=== PATIENT | male | born 1990 | race Caucasian/White ===

== ENCOUNTER 2018-04-12 10:07 | Emergency (ER) | payer SELFPAY ==
[2018-04-12 10:08] VITALS: BP 146/62; PULSE 106; RESP 15; TEMP 37.7; O2SAT 98; BMI 23.6
--- NOTE | 2018-04-12 10:15 | RAD_ITS ---
STUDY: X-RAY CHEST REASON FOR EXAM: Male, 28 years old. LEFT SIDE CHEST PAIN APPROX 4 DAYS; PRODUCTIVE COUGH; SOB; FEVER GENERAL ILLNESS. TECHNIQUE: Frontal and lateral views of the chest. COMPARISON: None. FINDINGS: The lungs are clear and expanded. There is no demonstrated pleural abnormality. Normal size heart. Normal mediastinum and tabitha. Normal visualized pulmonary arteries. Normal visualized aortic arch and descending thoracic aorta. Normal visualized thoracic spine. Normal visualized ribs, clavicles, and shoulders. There is no demonstrated abnormality of the visualized soft tissue structures of the upper abdomen. RAD/Chest PA and Lateral IMPRESSION: Normal x-ray examination of the chest. Electronically Signed: Arnoldo Still MD at 11:05 EDT Tel , Service support ,
--- NOTE | 2018-04-12 10:18 | ED.DCSUM_ITS ---
- ER Visit Summary Date of Service: 04/12/18 Chief Complaint: Cough, fever History of Present Illness: The patient is a 28 M who is otherwise healthy presents to the emergency department with cough and fever. Patient symptoms began about 3 days ago. He states he had fevers, chills, facial fullness, productive cough. He states his fever finally broke, but he is continued to cough. He denies feeling short of breath. He does admit to myalgias and arthralgias. He has no history of immunosuppression. He denies any history of pneumonia. He is not been on recent antibiotics. He has no underlying history of lung disease. He states that he went to work, and they told him you need to go get checked out. Physical Examination: Vital signs reviewed General: Well-nourished, well-developed Head: Normocephalic, atraumatic Eyes: Pupils equal and reactive, extraocular muscles intact Neck, supple, no lymphadenopathy Heart: Regular rate and rhythm Respiratory: No distress, clear bilaterally Abdomen: Soft, nontender, nondistended, no peritoneal signs Back: Nontender Extremities: Nontender, no edema, no cords Skin: Normal color no rash Neuro: Alert and oriented, no focal or lateralizing deficits Test Results: [] Emergency Department Course and Treatment: The patient presents with cough and fever. He has no focal change in lung sounds. Given his symptoms, I did obtain a chest x-ray. There is no focal infiltrate or pneumonia. The patient is resting comfortably. He has no hypoxia. He has no tachypnea. I do feel that the symptoms are likely viral given his cough and fever do not see a clear indication for antibiotics at this time. He has no tachypnea. He has no hypoxia. I do feel that he is safe for outpatient therapy. The patient was counseled on concerning symptoms and reasons to return. He will be discharged home. Treatment Plan: [] Disposition: Discharge Impression: 1. Viral URI This note was generated with [employer] dictation software. It may contain incorrect words, spelling, and punctuation that were not noted in review of the chart prior to signing ED Disposition - Plan for ED Patient: Chief Complaint: Cough Instructions: ED Upper Resp Infec No Abx Tx Referrals: Ruth Fam NP-C [NON-STAFF] -
[2018-04-12 10:22] VITALS: O2SAT 99
[2018-04-12] MEDS: Ipratropium/Albuterol Sulfate 3 ML AMPUL.NEB INHALATION (10:30)
[2018-04-12 10:32] VITALS: PULSE 110; RESP 18; O2SAT 97
[2018-04-12 11:07] VITALS: PULSE 96; RESP 15; O2SAT 99
== END 2018-04-12 11:34 | disposition home or self-care (01) ==
PROVIDERS: Emergency Provider Emergency Medicine
DX: J06.9 Acute upper respiratory infection, unspecified (principal)
CPT/HCPCS: 71046; 94640; 99282

== ENCOUNTER 2018-05-27 16:44 | Emergency (ER) | payer SELFPAY ==
[2018-05-27 16:46] VITALS: BP 107/61; PULSE 110; RESP 18; TEMP 36.7; O2SAT 98; BMI 21.4
--- NOTE | 2018-05-27 17:08 | ED.VISSUMM ---
- ER Visit Summary Date of Service: 05/27/18 Chief Complaint: Right inguinal pain History of Present Illness: The patient is a 28 M states that about 5 years ago he had a right inguinal hernia repair by Dr. Jorge diop. He is not sure of exactly how it was repaired. He states that about 1 week ago he was lifting a lot of boxes when he felt pain in the right lower quadrant inguinal region. He notes pain since. He denies any bulging into his scrotum or along the inguinal ligament/ring. Normal bowel movements. Physical Examination: Afebrile vital signs are stable Gen: Well-nourished well-developed Head: Normocephalic atraumatic Eyes: Perrl EOMI ENT: TMs clear no rhinorrhea moist mucous membranes Neck: Supple no lymphadenopathy no JVD nontender CVS: Regular rate rhythm no murmurs normal S1-S2 Respiratory: No distress clear to auscultation bilaterally chest nontender Abdomen: Soft nontender nondistended normal bowel sounds no masses : I do not palpate an obvious hernia. He has tenderness at the inguinal ring. Back: Nontender Extremity: Nontender no edema Skin: Normal color no rash Neuro: alert orientated ?3 CN II-XII intact normal strength sensation reflexes gait cerebellar Psych: Normal affect normal mood Emergency Department Course and Treatment: Patient will referred to general surgery. He is to rest avoid heavy lifting. I will write for anti-inflammatories and a few [place]. Impression: 1. Right inguinal strain This note was generated with [employer] dictation software. It may contain incorrect words, spelling, and punctuation that were not noted in review of the chart prior to signing ED Disposition - Plan for ED Patient: Disposition: Home or Assisted Living Chief Complaint: Abd Pain Instructions: ED Hernia Inguinal Prescriptions: Hydrocodone Bitart/Apap 5-325 [[place] 5MG-325MG] 1 tab PO Q6H PRN PRN 3 Days #10 tab PRN Reason: Pain Ibuprofen [Motrin] 800 mg PO TID PRN PRN #20 tab PRN Reason: Pain Referrals: Juni Neal MD [STAFF PHYSICIAN] - (call to arrange follow up)
--- NOTE | 2018-05-27 17:11 | ED.DCSUM_ITS ---
- ER Visit Summary Date of Service: 05/27/18 Chief Complaint: Right inguinal pain History of Present Illness: The patient is a 28 M states that about 5 years ago he had a right inguinal hernia repair by Dr. Jorge diop. He is not sure of exactly how it was repaired. He states that about 1 week ago he was lifting a lot of boxes when he felt pain in the right lower quadrant inguinal region. He notes pain since. He denies any bulging into his scrotum or along the inguinal ligament/ring. Normal bowel movements. Physical Examination: Afebrile vital signs are stable Gen: Well-nourished well-developed Head: Normocephalic atraumatic Eyes: Perrl EOMI ENT: TMs clear no rhinorrhea moist mucous membranes Neck: Supple no lymphadenopathy no JVD nontender CVS: Regular rate rhythm no murmurs normal S1-S2 Respiratory: No distress clear to auscultation bilaterally chest nontender Abdomen: Soft nontender nondistended normal bowel sounds no masses : I do not palpate an obvious hernia. He has tenderness at the inguinal ring. Back: Nontender Extremity: Nontender no edema Skin: Normal color no rash Neuro: alert orientated ?3 CN II-XII intact normal strength sensation reflexes gait cerebellar Psych: Normal affect normal mood Emergency Department Course and Treatment: Patient will referred to general surgery. He is to rest avoid heavy lifting. I will write for anti- inflammatories and a few [place]. Impression: 1. Right inguinal strain This note was generated with [employer] dictation software. It may contain incorrect words, spelling, and punctuation that were not noted in review of the chart prior to signing ED Disposition - Plan for ED Patient: Disposition: Home or Assisted Living Chief Complaint: Abd Pain Instructions: ED Hernia Inguinal Prescriptions: Hydrocodone Bitart/Apap 5-325 [[place] 5MG-325MG] 1 tab PO Q6H PRN PRN 3 Days #10 tab PRN Reason: Pain Ibuprofen [Motrin] 800 mg PO TID PRN PRN #20 tab PRN Reason: Pain Referrals: Juni Neal MD [STAFF PHYSICIAN] - (call to arrange follow up)
== END 2018-05-27 17:17 | disposition home or self-care (01) ==
PROVIDERS: Emergency Provider Emergency Medicine
DX: S39.011A Strain of muscle, fascia and tendon of abdomen, initial encounter (principal); X50.9XXA Other and unspecified overexertion or strenuous movements or postures, initial encounter; Y93.9 Activity, unspecified; Y92.9 Unspecified place or not applicable; Y99.9 Unspecified external cause status
CPT/HCPCS: 99282

== ENCOUNTER → 2018-09-12 12:30 | Outpatient (CLI) | payer MEDICAID, SELFPAY ==
[2018-06-04 10:01] VITALS: BMI 21.4
--- NOTE | 2018-09-12 10:10 | LES_PTH ---
PATIENT: MARILIN HENDRIX LOC: [facility] U#:[id number] AGE/SX: 35/M ROOM: RE09/12/[address]: Dr. Kike Hou, : 1990 BED: DIS: SPEC #: [id number] RECD: 09/12/18 15:24 STATUS: DENIS LUZ #: [id number] RADHA: 09/12/18 10:[address]: Kike Hou DEPT: SURGICAL PATHOLOGY RECD BY: Kleber Moreno Tissues: Skin of arm Procedures: Surgery Specimen Level IV HEADER OPERATION: Punch biopsy PRE-OP DIAGNOSIS: Changing nevus right elbow, rule out melanoma TISSUE SUBMITTED: Right elbow 4 mm punch biopsy MICROSCOPIC DIAGNOSIS Lesion of right elbow, punch biopsy: Intradermal nevus. AM:michelle 09/16/18 MICROSCOPIC DESCRIPTION Slides are reviewed. GROSS DESCRIPTION Received is one container labeled with the patient's name and not further designated. The specimen consists of a single irregular fragment of segundo tissue measuring 0.3 x 0.3 x 0.1 cm. The specimen is totally submitted in one cassette. / AM:michelle 09/13/18 TC:5 [facility]: [id number]
== END ==
PROVIDERS: Family Provider Family Medicine; PCP Family Medicine; Visit Provider Family Medicine
DX: D22.61 Melanocytic nevi of right upper limb, including shoulder (principal)
CPT/HCPCS: 88305

== ENCOUNTER → 2018-10-23 07:53 | Outpatient (CLI) | payer MEDICAID, SELFPAY ==
[2018-06-04 10:01] VITALS: BMI 21.4
--- NOTE | 2018-10-23 08:06 | CT_ITS ---
STUDY: CT MAXILLOFACIAL SINUSES REASON FOR EXAM: Male, 28 years old. Sinusitis RADIATION DOSAGE (If Supplied By Facility): CTDIvol = ( 33.06 ) mGy, DLP = ( 796.66 ) mGycm TECHNIQUE: The patient was scanned in a multi detector CT scanner. High resolution axial imaging was performed without the administration of intravenous contrast material. Sagittal and coronal images were reconstructed. Individualized dose optimization techniques were used for this CT. COMPARISON: None. FINDINGS: FRONTAL SINUSES: Normal aeration, without mucosal inflammatory disease. ETHMOIDAL SINUSES: Minor mucosal thickening of the anterior ethmoid air cells. MAXILLARY SINUSES: There is very minor mucosal thickening of the roof of the maxillary sinuses bilaterally SPHENOIDAL SINUSES: Polypoid mucosal thickening left sphenoid sinus. There is patency of the bilateral maxillary infundibuli with normal uncinate processes, ethmoid bullae, and hiatus semilunaris. Normal bilateral middle turbinates. Normal bilateral inferior turbinates. Mild deviation of nasal septum to the left. There is patency of the bilateral nasal airways. The visualized osseous structures are normal. The visualized bilateral orbital contents are normal. CT/Sinus/Facial Bone IMPRESSION: Minor bilateral maxillary ethmoid and left sphenoid sinusitis Electronically Signed: Adrian Jacobo MD at 21:19 EDT , Service support ,
== END ==
PROVIDERS: Family Provider Family Medicine; PCP Family Medicine; Referring Provider Otolaryngology; Visit Provider Otolaryngology
DX: J32.9 Chronic sinusitis, unspecified (principal)
CPT/HCPCS: 70486

== ENCOUNTER 2019-01-22 23:55 | Emergency (ER) | payer MEDICAID, SELFPAY ==
[2018-06-04 10:01] VITALS: BMI 21.4
[2019-01-22 23:56] VITALS: BP 113/63; PULSE 99; RESP 16; TEMP 36.7; O2SAT 99; BMI 19.8
--- NOTE | 2019-01-23 00:03 | ED.RN ---
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 PT STATES THAT HE WAS HAVING THOUGHTS ABOUT WANTING TO HARM HIMSELF BUT DENIES HAVING THESE THOUGHTS NOW. HE STATES I JUST OVERREACTED AND WAS HAVING A BAD NIGHT.
--- NOTE | 2019-01-23 00:17 | ED.DCSUM_ITS ---
History of Present Illness Chief Complaint: Depression Informant: Patient Narrative: Patient presents with police with pink slip. Patient is currently denying suicidal ideation. Police were called by the patient's roommate after patient reportedly was sending her text messages stating that he was going to kill himself and saying goodbye. She found him in a room with a belt around his neck. He apparently had scattered pills around the floor as well. Patient states that he had been drinking tequila tonight and sent the text messages without thinking. He is denying suicidality at this time. He had one prior suicide attempt at age 17 by hanging. - Past Medical History (1) Anxiety Status: Acute (2) Depression Status: Acute Past Medical History - Allergies and Home Meds Allergies/Adverse Reactions: Allergies venom-honey bee [bee venom (honey bee)] Allergy (Verified 01/22/19 23:56) Anaphylaxis Primary Care Physician: Kike Hou DO [Primary Care Provider] - Prior records reviewed: Yes Past Medical History: - - Reviewed Surgical History: appendectomy, herniorrhaphy Lives: Roommate Smoking Status: Never smoker Alcohol: Occasional Drugs: Marijuana Review of Systems All systems negative except as indicated General: Denies: Chills, Fever Eyes: Denies: Visual changes - left, Visual changes - right ENT: Denies: Bilateral ear pain Cardiovascular: Denies: Chest pain, Palpitations Respiratory: Denies: Dyspnea, Cough Gastrointestinal: Denies: Abdominal pain, Nausea, Vomiting Genitourinary: Denies: Dysuria Musculoskeletal: Denies: Myalgias, Arthralgias Neurological: Denies: Headache Psych: Reports: Depression, Anxiety Allergy: Denies: Uticaria Physical Exam Vital Signs/Narrative: Vital Signs Temp Pulse Resp BP Pulse Ox 01/22/19 23:56 98.1 F 99 16 113/63 99 Inital Vital Signs reviewed: Yes General: Well nourished, Well developed Eyes: Perrl ENT: Moist mucous membranes Neck: Supple Cardiovascular: Regular rate, Regular rhythm Respiratory: No distress, CTA bilaterally Abdomen: Soft, Nontender, Nondistended Extremities: Nontender, No Edema Skin: Normal color Neurological: Alert, Oriented x3 Psych: Normal Speech Pattern, - - Patient alert and interactive. He continues to deny suicidal ideation at this time, but patient does admit to sending text messages with suicidal statements and having a belt around his neck. Diagnostic/Tx/Re-eval Laboratory Results 01/23/19 01/23/19 01/23/19 00:08 00:20 00:20 WBC 8.2 RBC 4.57 L Hgb 13.4 Hct 39.5 L MCV 86.4 MCH 29.3 MCHC 33.9 RDW Std Deviation 45.2 H RDW Coeff of [place] 14.5 Plt Count 318 MPV 11.4 Immature Gran % (Auto) 0.400 Neut % (Auto) 48.0 Lymph % (Auto) 41.4 H [place] % (Auto) 4.2 Eos % (Auto) 5.4 H Baso % (Auto) 0.6 Absolute Neuts (auto) 3.9 Absolute Lymphs (auto) 3.38 Absolute Nucleated RBC 0.00 Nucleated RBC % 0 Sodium Potassium Chloride Carbon Dioxide Anion Gap BUN Creatinine Estim Creat Clear Calc Est GFR (MDRD) Af Amer Est GFR (MDRD) Non-Af BUN/Creatinine Ratio Glucose Calcium Total Bilirubin 0.30 Direct Bilirubin 0.06 AST 18 ALT 25 Alkaline Phosphatase 68 Total Protein 7.5 Albumin 3.9 Globulin 3.6 Urine Opiates Screen NEGATIVE Urine Methadone Screen NEGATIVE Ur Barbiturates Screen NEGATIVE Ur Phencyclidine Scrn NEGATIVE Ur Amphetamines Screen NEGATIVE U Methamphetamin-MDMA NEGATIVE U Benzodiazepines Scrn NEGATIVE Urine Cocaine Screen NEGATIVE U Cannabinoids Screen POSITIVE H Ur Drug Screen Comment Ethyl Alcohol 01/23/19 01/23/19 01/23/19 00:20 00:20 02:40 WBC RBC Hgb Hct MCV MCH MCHC RDW Std Deviation RDW Coeff of [place] Plt Count MPV Immature Gran % (Auto) Neut % (Auto) Lymph % (Auto) [place] % (Auto) Eos % (Auto) Baso % (Auto) Absolute Neuts (auto) Absolute Lymphs (auto) Absolute Nucleated RBC Nucleated RBC % Sodium 139 Potassium 3.8 Chloride 106 Carbon Dioxide 27.0 Anion Gap 6 BUN 14 Creatinine 0.93 Estim Creat Clear Calc 111.76 Est GFR (MDRD) Af Amer 125 Est GFR (MDRD) Non-Af 103 BUN/Creatinine Ratio 15.1 Glucose 82 Calcium 8.8 Total Bilirubin Direct Bilirubin AST ALT Alkaline Phosphatase Total Protein Albumin Globulin Urine Opiates Screen Urine Methadone Screen Ur Barbiturates Screen Ur Phencyclidine Scrn Ur Amphetamines Screen U Methamphetamin-MDMA U Benzodiazepines Scrn Urine Cocaine Screen U Cannabinoids Screen Ur Drug Screen Comment Ethyl Alcohol 109.0 53.0 Patient was seen by Karly from the counseling center. Patient continues to deny suicidal ideation. He states he feels like this was a wake-up call for him. He has forward thinking and plans to go to work today. Patient did tell Karly that he had a drink approximately 15 minutes prior to arrival and she questioned whether his alcohol level initially drawn was accurate. A repeat alcohol level was drawn and is now 51. Patient signed a safety contract. He already sees the counseling center every third week. I verified with Karly that the counseling center would be making phone calls to him today to check on his safety. Patient's roommate will come pick him up. He plans to be at work in 3 hours. Disposition: Home ED Disposition - Plan for ED Patient: Disposition: Home or Assisted Living Instructions: Depression, Alcohol Intoxication Referrals: Kike Hou, [Primary Care Provider] - Counseling,Center [GROUP OF PHYSICIANS] - As soon as possible
[2019-01-23 00:31] LABS: Absolute Lymphocyte Count 3.38 X10^3/uL (0.83-4.51); Absolute Neutrophil Count 3.9 X10^3/uL (2.0-7.7); Basophil# 0.05 X10^3/uL; Basophil% 0.6 % (0-1); Eosinophil# 0.44 X10^3/uL; Eosinophils% 5.4 % (0-5); Hematocrit 39.5 % (40-54); Hemoglobin 13.4 g/dL (13.0-16.5); Lymphocyte # 3.38 X10^3/ul (4.0); Lymphocyte % 41.4 % (19-41); Mean Corp Hgb Conc 33.9 g/dL (32-36); Mean Corpuscular Hgb 29.3 pg (27.0-32.0); Mean Corpuscular Volume 86.4 fL (80-94); Mean Platelet Vol. 11.4 fl (6.2-12.0); Monocyte# 0.34 X10^3/uL; Monocyte% 4.2 % (0-10); NRBC Flagged by Analyzer 0 % (0-5); Neutrophil # 3.92 X10^3/uL (2.7-7.7); Platelet Count 318 K/mm3 (150-450); RBC Distribution Width CV 14.5 % (11.6-14.6); RBC Distribution Width SD 45.2 fl (35.1-43.9); Red Blood Count 4.57 M/mm3 (4.6-6.2); White Blood Count 8.2 K/mm3 (4.4-11.0)
[2019-01-23 00:49] LABS: Anion Gap 6 (5-15); BUN 14 mg/dL (7-18); BUN/Creat Ratio 15.1 RATIO (10-20); Calcium,Total 8.8 mg/dL (8.5-10.1); Chloride 106 mmol/L (98-107); Creatinine, Serum 0.93 mg/dL (0.70-1.30); EST Glomerular Filtration Rate 103 mL/min (>60); Est Glom Filt Rate - Afr Amer 125 mL/min (>60); Estimated Creatinine Clearance 111.76 ml/min; Glucose 82 mg/dL (74-106); Potassium 3.8 mmol/L (3.5-5.1); Sodium Level 139 mmol/L (136-145)
[2019-01-23 00:52] LABS: Amphetamine Urine VISTA NEGATIVE (<1000 ng/mL); Barbiturate Urine VISTA NEGATIVE (< 200 ng/mL); Benzodiazepine Urine VISTA NEGATIVE (< 200 ng/mL); Cocaine Urine VISTA NEGATIVE (< 300 ng/mL); Ecstacy Urine VISTA NEGATIVE (< 500 ng/mL); Methadone Urine VISTA NEGATIVE (< 300 ng/mL); PCP Urine VISTA NEGATIVE (< 25 ng/mL); THC Urine VISTA POSITIVE (< 50 ng/mL); Vista UDS pH Range 6
[2019-01-23 00:57] LABS: AST(SGOT) 18 U/L (15-37); Alanine Aminotransfer ALT/SGPT 25 U/L (16-61); Albumin, Serum 3.9 g/dL (3.2-5.0); Alkaline Phosphatase 68 U/L (45-117); Bilirubin, Direct 0.06 mg/dL (0.00-0.30); Globulin 3.6 g/dL (2.2-4.2); Protein, Total 7.5 g/dL (6.4-8.2)
[2019-01-23 01:06] VITALS: RESP 16
--- NOTE | 2019-01-23 02:00 | ED.RN ---
ANALI FROM [facility] IS IN THE DEPT. NOTIFIED HER THAT THIS PT NEEDS TO BE EVALUATED BY [facility]. SHE IS EVALUATING THIS PT NOW.
[2019-01-23 02:11] VITALS: BP 109/66; PULSE 86; RESP 16; O2SAT 99
[2019-01-23 03:09] VITALS: RESP 16
[2019-01-23 04:40] VITALS: RESP 20
--- NOTE | 2019-01-23 04:40 | ED.RN ---
COPY OF SAFETY PLAN GIVEN TO PATIENT. ALL QUESTIONS ANSWERED, NO FURTHER CONCERNS. PT AMBULATED TO LOBBY WITH A STEADY AND INDEPENDENT GAIT.
== END 2019-01-23 04:41 | disposition home or self-care (01) ==
PROVIDERS: Emergency Provider Emergency Medicine; Family Provider Family Medicine; PCP Family Medicine
DX: F32.9 Major depressive disorder, single episode, unspecified (principal); F41.9 Anxiety disorder, unspecified; F10.129 Alcohol abuse with intoxication, unspecified; Y90.5 Blood alcohol level of 100-119 mg/100 ml; Z79.899 Other long term (current) drug therapy; Z91.5 Personal history of self-harm
CPT/HCPCS: 36415; 80048; 80076; 80307; 80320; 85025; 99282; G0480